=== PATIENT | male | born 1970 | race Caucasian/White ===

== ENCOUNTER 2016-07-07 08:53 | Emergency (ER) | payer OTHER ==
[2016-07-07 09:22] VITALS: BP 128/82; PULSE 88; RESP 18; TEMP 98; O2SAT 97
--- NOTE | 2016-07-07 10:23 | DX ---
Left Foot, 3 views. HISTORY: Left foot pain. FINDINGS: There is a possible subtle nondisplaced fracture of the medial navicula. No other evidence for acute fracture. Minimal hallux valgus and bunion deformity. Minimal early degenerative change fir st metatarsophalangeal joint. No other significant osseous abnormality. IMPRESSION: Possible nondisplaced fracture of the medial navicula. Results discussed with Dr. Ebonie Padilla.
--- NOTE | 2016-07-07 10:32 | UCPHY ---
H & P Time Seen by Provider: 07/07/16 10:08 Patient Type: New HPI/ROS: 45-year-old male presents complaining of left foot pain began about 4 days ago while he was in the shower feels like maybe he stepped funny and has increased to daily. Review of systems General no fever no chills no weakness HEENT no eye pain no eye discharge. No eye redness, no sore throat Respiratory no cough, no shortness of breath Cardiac no chest pain, no peripheral edema GI no abdominal pain, no diarrhea, no constipation, no nausea, no vomiting no flank pain, no hematuria, no dysuria Musculoskeletal no myalgias, positive joint pain Heme no easy bruising, no easy bleeding Endo no polyuria, no polydipsia Skin no rashes, no pruritus Neuro no syncope, no dizziness, no headaches Psych is no suicidal ideation, no homicidal ideation Past Medical/Surgical History: Noncontributory No history of diabetes Social History: Alcohol socially, denies drug use Smoking Status: Never smoked Physical Exam: 45-year-old male alert and oriented no acute distress nontoxic appearance afebrile Alert and oriented in no acute distress nontoxic appearance, afebrile Atraumatic normocephalic Neck no JVD Lungs clear to auscultation, no respiratory distress Heart regular rate and rhythm Extremities no cyanosis clubbing edema Left foot-no ecchymosis no swelling good pulses, good capillary refill good range of motion of digits good range of motion at the ankle and knee Positive tenderness to palpation mid foot dorsum, no crepitus Constitutional: Initial Vital Signs Temperature (C) 36.6 C 07/07/16 09:19 Heart Rate 88 07/07/16 09:19 Respiratory Rate 18 07/07/16 09:19 Blood Pressure 128/82 H 07/07/16 09:19 O2 Sat (%) 97 07/07/16 09:19 O2 Delivery Mode Room Air Allergies/Adverse Reactions: No Known Allergies Allergy (Unverified 07/07/16 09:18) Home Medications: Medication Instructions Recorded NK [No Known Home Meds] 07/07/16 Medical Decision Making ED Course/Re-evaluation: Patient seen and evaluated for left foot pain of approximately 4-5 days duration X-ray with questionable navicular fracture Walker boot Impression/plan Foot fracture Follow up with Podiatry Departure - Departure Disposition: Home, Routine, Self-Care Clinical Impression: Left navicular fracture of foot Condition: Good Instructions: Foot Fracture in Adults (ED) Referrals: NONE *PRIMARY CARE P,. [Primary Care Provider] - As per Instructions Eric Prince MD [Doctor of Podiatric Medicine] - As per Instructions - PQRS PQRS Measurement: na
== END 2016-07-07 10:42 | disposition home or self-care (01) ==
LOC: CED 08:53
DX: S99.922A Unspecified injury of left foot, initial encounter (principal); Y92.091 Bathroom in other non-institutional residence as the place of occurrence of the external cause
CPT/HCPCS: 73630-PO; G0463-PO; L4386